=== PATIENT | male | born 1965 | race Caucasian/White ===

== ENCOUNTER 2016-11-28 02:28 | Inpatient (IN) | payer SELFPAY ==
[2016-11-28] MEDS ORDERED: NITROGLYCERIN 0.4 MG/TAB BOTTLE SL ONE (03:00)
[2016-11-28] MEDS ORDERED: ASPIRIN 81 MG TAB.CHEW PO ONE (03:00)
[2016-11-28] MEDS ORDERED: NITROGLYCERIN 0.4 MG/TAB BOTTLE ONE (03:02)
[2016-11-28] MEDS ORDERED: ASPIRIN 81 MG TAB.CHEW ONE (03:02)
[2016-11-28] MEDS ORDERED: ALBUTEROL FS 2.5 MG/3 ML VIAL.NEB ONE ×2 (03:27→22:11)
[2016-11-28] MEDS ORDERED: IPRATROPIUM NEB FS 0.5 MG/2.5 ML AMPUL.NEB ONE (03:27)
[2016-11-28] MEDS ORDERED: IPRATROPIUM NEB FS 0.5 MG/2.5 ML AMPUL.NEB NEB ONE (03:30)
[2016-11-28] MEDS ORDERED: ALBUTEROL FS 2.5 MG/3 ML VIAL.NEB NEB ONE (03:30)
[2016-11-28] MEDS ORDERED: IOHEXOL-350 100 ML VIAL IV ONE (03:47)
[2016-11-28] MEDS ORDERED: IV NS 0.9% 250 ML IV ONE (03:47)
[2016-11-28] MEDS ORDERED: CLOPIDOGREL BISULFATE 75 MG TABLET ONE (04:59)
[2016-11-28] MEDS ORDERED: CLOPIDOGREL BISULFATE 75 MG TABLET PO ONE (05:00)
[2016-11-28] MEDS ORDERED: LISINOPRIL (10MG) 10 MG TABLET PO SCH (05:00)
[2016-11-28] MEDS ORDERED: SIMVASTATIN 20 MG TABLET PO SCH (06:00)
[2016-11-28] MEDS ORDERED: ACETAMINOPHEN 325 MG TABLET PO PRN (06:00)
[2016-11-28] MEDS ORDERED: MORPHINE SULFATE INJ 2 MG/ML DISP.SYRIN IV PRN (06:00)
[2016-11-28] MEDS ORDERED: METOPROLOL TARTRATE 25 MG TABLET PO SCH (06:00)
[2016-11-28] MEDS ORDERED: ONDANSETRON HCL/PF 4 MG/2 ML VIAL IVP PRN (06:00)
[2016-11-28] MEDS ORDERED: NITROGLYCERIN 0.4 MG/TAB BOTTLE SL PRN (06:00)
[2016-11-28] MEDS: ASPIRIN 81 MG TAB.CHEW PO SCH (08:22)
[2016-11-28] MEDS ORDERED: ISOS30TA6 PO (09:12)
[2016-11-28] MEDS ORDERED: FURO40TA5 PO (09:12)
[2016-11-28] MEDS ORDERED: LISI10TA5 PO (09:12)
[2016-11-28] MEDS ORDERED: PROP60CA6 PO (09:12)
[2016-11-28] MEDS ORDERED: CARV12.52 PO (09:12)
[2016-11-28] MEDS ORDERED: REGADENOSON 0.4 MG/5 ML DISP.SYRIN IVP ONE (13:00)
[2016-11-28] MEDS ORDERED: ALBUTEROL FS 2.5 MG/3 ML VIAL.NEB NEB PRN (22:00)
[2016-11-28] MEDS: CARVEDILOL 6.25 MG TABLET PO SCH (22:52)
[2016-11-29] MEDS ORDERED: CLOPIDOGREL BISULFATE 75 MG TABLET PO SCH (09:00)
[2016-11-29] MEDS: Magnesium 1GM/D5W 100ML PREMIX 100 ML IV SCH ×2 (09:33→10:00)
[2016-11-29] MEDS ORDERED: ASPI81TA2 PO (11:58)
[2016-11-29] MEDS: ASPIRIN 81 MG TAB.CHEW PO SCH (12:41)
[2016-11-29] MEDS: CARVEDILOL 6.25 MG TABLET PO SCH (12:44)
== END 2016-11-29 19:20 | disposition home or self-care (01) | DRG 282 ==
DX: I21.4 Non-ST elevation (NSTEMI) myocardial infarction (principal); I10 Essential (primary) hypertension; E78.5 Hyperlipidemia, unspecified; I25.10 Atherosclerotic heart disease of native coronary artery without angina pectoris; I25.2 Old myocardial infarction; I25.5 Ischemic cardiomyopathy; J44.9 Chronic obstructive pulmonary disease, unspecified; Z91.14 Patient's other noncompliance with medication regimen; Z91.19 Patient's noncompliance with other medical treatment and regimen; Z95.810 Presence of automatic (implantable) cardiac defibrillator; Z98.61 Coronary angioplasty status; Z72.0 Tobacco use